=== PATIENT | female | born 1990 | race Caucasian/White ===

== ENCOUNTER 2016-06-16 17:04 | Observation (INO) | payer BC, OTHER | END 2016-06-16 20:15 | disposition home or self-care (01) | LOC: 3 SO LND 17:04 | PROVIDERS: ADMIT Obstetrics & Gynecology; ATTEND Obstetrics & Gynecology | DX: O26.893 Other specified pregnancy related conditions, third trimester (principal); R10.30 Lower abdominal pain, unspecified; Z3A.39 39 weeks gestation of pregnancy | CPT/HCPCS: G0378; G0379 ==